=== PATIENT | male | born 1975 | race Asian ===

== ENCOUNTER 2019-04-01 06:04 | Emergency (ER) | payer BC, MEDICAID ==
[~2019-04-01] VITALS: Ht 152.4 cm; Wt 59.4 kg
[2019-04-01 06:05] VITALS: Ht 152.4 cm; Wt 59.4 kg
[2019-04-01 07:29] LABS: BASOPHIL % 0.7 % (0-2); PLATELET COUNT 264 x10^3mcL (130-400); RED CELL DISTRIBUTION WIDTH 14.1 % (11.5-14.5)
[2019-04-01 08:07] LABS: CALCIUM 8.7 mg/dL (8.5-10.1); CARBON DIOXIDE 29.2 mmol/L (21-32); CHLORIDE SERUM 104 mmol/L (98-107); CREATININE SERUM 0.9 mg/dL (0.7-1.3); GFR1 > 60 mL/min; GLUCOSE SERUM 100 mg/dL (74-106); POTASSIUM SERUM 4.3 mmol/L (3.5-5.1); SODIUM SERUM 139 mmol/L (136-145)
[2019-04-01 08:11] LABS: ALBUMIN 3.4 g/dL (3.4-5.0); ALKALINE PHOSPHATASE 62 U/L (46-116); ALT/SGPT 37 U/L (16-63); AST/SGOT 26 U/L (15-37); BILIRUBIN TOTAL 0.41 mg/dL (0.20-1.00); LIPASE 123 IU/L (73-393); TOTAL PROTEIN, SERUM 7.3 g/dL (6.4-8.2); URIC ACID 7.9 mg/dL (3.5-7.2)
[2019-04-01 09:21] VITALS: BP 134/87
== END 2019-04-01 09:21 | disposition home or self-care (01) ==
LOC: ED 06:04
PROVIDERS: Emergency Medicine
DX: R04.2 Hemoptysis (principal); M10.9 Gout, unspecified
CPT/HCPCS: 36415